=== PATIENT | male | born 1950 | race African-American/Black ===

== ENCOUNTER 2017-04-03 21:14 | Emergency (ER) | payer BC ==
[~2017-04-03] VITALS: Ht 177.8 cm; Wt 102.3 kg
[~2017-04-03 21:14] MED LIST: CLEAPOW6 PO; CLON.1 PO; DOCU100T9 PO; FURO20TA PO; GLUCTAB PO; HCTZ25 PO; HYDR2TAB PO; LISI20 PO; MORP60 PO; NIFE1TAB85 PO; OXYC1SOL5 PO; PRAV20 PO; SITA50 PO; SUCR1TAB PO
[2017-04-03 21:15] VITALS: BP 260/123; PULSE 64; RESP 16; TEMP 98.1; O2SAT 99
--- NOTE | 2017-04-03 22:29 | PD ---
HPI Chief Complaint: Skin Problem Time Seen by Provider: 21:44 Travel History International Travel<30 days: No Contact w/Intl Traveler<30days: No Traveled to known affect area: No History of Present Illness HPI 66-year-old black male presents to emergency department for evaluation of a rash. He feels that he may have contracted poison kathia or some sort of an internal infection. Patient states that approximately one week ago he had been helping move some wood at his 's house and noticed a rash on his ears 2 days later. He states that the rash on his ears has resolved. He is now having diffuse pruritus. Patient also states that he has had some swelling of his foreskin and cannot retract his foreskin. He denies any urethral symptoms. No discharge. He denies sexual activity. Patient denies any fever or chills. No chest pain or shortness of breath. No rashes at this time. PFSH Past Medical History Hx Anticoagulant Therapy: Yes (PE 3 MONTHS AGO) Arthritis: Yes (OSTEOARTHRITIS) Asthma: No Autoimmune Disease: No Anxiety: No Depression: No Heart Rhythm Problems: Yes (HEART MURMUR) Cancer: No Cardiovascular Problems: Yes (HIGH BP) High Cholesterol: Yes Chemotherapy: No Chest Pain: No Congestive Heart Failure: No COPD: No Cerebrovascular Accident: No Diabetes: Yes (DM TYPE 2) Patient Takes Glucophage: Yes (METFORMIN ) Diminished Hearing: No Endocrine: Yes GERD: Yes (GERD) Genitourinary: Yes (ENLARGED PROSTATE) Hiatal Hernia: No Hypertension: Yes Immune Disorder: No Implanted Vascular Access Dvce: Yes Kidney Stones: No Musculoskeletal: Yes Neurologic: Yes (BILATERAL KNEE ARTHRITIS) Psychiatric: No Reproductive: Yes (PROSTATE HYPERTROPHY) Respiratory: Yes Migraines: No Radiation Therapy: No Renal Failure: No Seizures: No Sickle Cell Disease: No Sleep Apnea: Yes (BUT NO CPAP) Thyroid Disease: No Ulcer: No Tetanus Vaccination: > 5 Years Past Surgical History Abdominal Surgery: No AICD: No Arteriovenous Shunt: No Cardiac Surgery: No Cholecystectomy: Yes Ear Surgery: No Endocrine Surgery: No Eye Surgery: No Genitourinary Surgery: Yes (ENLARGED PROSTATE-PARTIAL REMOVAL) Gynecologic Surgery: No Insulin Pump: No Joint Replacement: Yes (BILATERAL KNEE REPLACEMENT) Oral Surgery: No Pacemaker: No Thoracic Surgery: No Other Surgery: Yes (WENDY, PARTIAL PROSTATE REMOVED) Social History Alcohol Use: No Tobacco Use: No Substance Use: No Allergies-Medications (Allergen,Severity, Reaction): Coded Allergies: No Known Allergies (Verified Adverse Reaction, Unknown, 04/03/17) Reported Meds & Prescriptions Reported Meds & Active Scripts Active Bella Allergy (Fexofenadine HCl) 180 Mg Tab 180 Mg PO DAILY Triamcinolone Topical (Triamcinolone Acetonide) 0.1 % Oint 1 Applic TOPICAL BID 7 Days Catapres (Clonidine HCl) 0.1 Mg Tab 0.1 Mg PO BID Morphine Sulfate ER (Morphine Sulfate) 60 Mg Tab 60 Mg PO Q12HR Nifedipine Er (Nifedipine) 30 Mg Tab 30 Mg PO DAILY Oxycodone/Acetaminophen 5-325 mg/5Ml (Oxycodone W/ Acetaminophen) 10 mg/325 mg Tab 1-2 Tab PO Q4H PRN Januvia (Sitagliptin Phosphate) 50 Mg Tab 50 Mg PO DAILY Hydrodiuril (Hydrochlorothiazide) 25 Mg Tab 25 Mg PO DAILY Pravastatin Sodium 20 Mg Tab 20 Mg PO HS Prinivil 20 mg (Lisinopril) 20 Mg Tab 20 Mg PO BID Polyethylene Glycol 3350 (Polyethylene Glycol) 3,350 Nf Pow 17 Gm PO DAILY 30 Days DISSOLVE 1 PACKET (17 GM) IN 4-8 OUNCES OF WATER OR JUICE BEFORE CONSUMPTION Sucralfate 1 Gm Tab 1 Gm PO TIDAC Take with water on an empty stomach. To reduce the potential of adversely affecting the absorption of other drugs, take other drugs 2 hours prior to Sucralfate. Hydromorphone Hcl (Hydromorphone HCl) 2 Mg Tab 2 Mg PO Q4H PRN Furosemide 20 Mg Tab 20 Mg PO DAILY Docusate Sodium 100 Mg Cap 100 Mg PO BID Glucophage XR 24 HR (Metformin HCl) 500 Mg Tab 500 Mg PO BID Review of Systems General / Constitutional: No: Fever Eyes: No: Visual changes HENT: No: Headaches Cardiovascular: No: Chest Pain or Discomfort Respiratory: No: Shortness of Breath Gastrointestinal: No: Abdominal Pain Genitourinary: No: Urgency, Frequency, Dysuria, Hematuria, Discharge Musculoskeletal: No: Pain Skin: Positive Itching, Positive Dryness, No Rash Neurologic: No: Weakness Psychiatric: No: Depression Endocrine: No: Polydipsia Hematologic/Lymphatic: No: Easy Bruising Physical Exam Narrative GENERAL: Well-developed, well-nourished in no acute distress. Nontoxic appearing. HEAD: Normocephalic, atraumatic. EYES: Pupils equal round and reactive. Extraocular motions intact. No scleral icterus. No injection or drainage. ENT: TMs clear without erythema. The external auditory canals clear. Nose: clear . Posterior pharynx is pink and moist. No tonsillar edema or exudate. Uvula midline. Airway patent. NECK: Trachea midline.Supple, nontender, moves head freely. No central bony tenderness or spasm. CARDIOVASCULAR: Regular rate and rhythm without murmurs, gallops, or rubs. RESPIRATORY: Clear to auscultation. Breath sounds equal bilaterally. No wheezes , rales, or rhonchi. GASTROINTESTINAL: Abdomen soft, non-tender, nondistended. No hepato-splenomegaly , or palpable masses. No guarding. EXTREMITIES: No clubbing, cyanosis, or edema. No joint tenderness, effusion, or edema noted. BACK: Nontender without deformity or crepitance. No flank tenderness. GENITOURINARY: UNCircumcised. Patient does have some mild swelling of the foreskin. Testes descended bilaterally without evidence of rotation. No lesions or erythema. No urethral discharge. Data Data Last Documented VS Vital Signs Date Time Temp Pulse Resp B/P (MAP) Pulse Ox O2 Delivery O2 Flow Rate FiO2 04/03/17 21:15 98.1 64 16 260/123 (168) 99 Room Air Orders Orders Complete Blood Count With Diff (04/03/17 21:53) Comprehensive Metabolic Panel (04/03/17 21:53) Urinalysis - C+S If Indicated (04/03/17 21:53) Diphenhydramine (Benadryl) (04/04/17 00:00) Ed Discharge Order (04/03/17 23:47) Labs Laboratory Tests Test 04/03/17 22:15 White Blood Count 4.6 TH/MM3 Red Blood Count 4.36 MIL/MM3 Hemoglobin 12.4 GM/DL Hematocrit 38.0 % Mean Corpuscular Volume 87.2 FL Mean Corpuscular Hemoglobin 28.5 PG Mean Corpuscular Hemoglobin Concent 32.6 % Red Cell Distribution Width 14.8 % Platelet Count 253 TH/MM3 Mean Platelet Volume 8.3 FL Neutrophils (%) (Auto) 43.7 % Lymphocytes (%) (Auto) 34.7 % Monocytes (%) (Auto) 12.6 % Eosinophils (%) (Auto) 8.4 % Basophils (%) (Auto) 0.6 % Neutrophils # (Auto) 2.0 TH/MM3 Lymphocytes # (Auto) 1.6 TH/MM3 Monocytes # (Auto) 0.6 TH/MM3 Eosinophils # (Auto) 0.4 TH/MM3 Basophils # (Auto) 0.0 TH/MM3 CBC Comment DIFF FINAL Differential Comment Urine Color YELLOW Urine Turbidity CLEAR Urine pH 6.5 Urine Specific Williamson 1.021 Urine Protein TRACE mg/dL Urine Glucose (UA) NEG mg/dL Urine Ketones NEG mg/dL Urine Occult Blood NEG Urine Nitrite NEG Urine Bilirubin NEG Urine Urobilinogen LESS THAN 2.0 MG/DL Urine Leukocyte Esterase TRACE Urine RBC LESS THAN 1 /hpf Urine WBC 2 /hpf Urine Squamous Epithelial Cells <1 /hpf Urine Mucus FEW /lpf Microscopic Urinalysis Comment CULT NOT INDICATED Blood Urea Nitrogen 17 MG/DL Creatinine 1.28 MG/DL Random Glucose 141 MG/DL Total Protein 7.8 GM/DL Albumin 3.5 GM/DL Calcium Level 8.7 MG/DL Alkaline Phosphatase 64 U/L Aspartate Amino Transf (AST/SGOT) 15 U/L Alanine Aminotransferase (ALT/SGPT) 24 U/L Total Bilirubin 0.3 MG/DL Sodium Level 139 MEQ/L Potassium Level 3.4 MEQ/L Chloride Level 103 MEQ/L Carbon Dioxide Level 29.1 MEQ/L Anion Gap 7 MEQ/L Estimat Glomerular Filtration Rate 68 ML/MIN MDM Medical Decision Making Medical Screen Exam Complete: Yes Emergency Medical Condition: Yes Medical Record Reviewed: Yes Interpretation(s) Laboratory Tests Test 04/03/17 22:15 White Blood Count 4.6 TH/MM3 Red Blood Count 4.36 MIL/MM3 Hemoglobin 12.4 GM/DL Hematocrit 38.0 % Mean Corpuscular Volume 87.2 FL Mean Corpuscular Hemoglobin 28.5 PG Mean Corpuscular Hemoglobin Concent 32.6 % Red Cell Distribution Width 14.8 % Platelet Count 253 TH/MM3 Mean Platelet Volume 8.3 FL Neutrophils (%) (Auto) 43.7 % Lymphocytes (%) (Auto) 34.7 % Monocytes (%) (Auto) 12.6 % Eosinophils (%) (Auto) 8.4 % Basophils (%) (Auto) 0.6 % Neutrophils # (Auto) 2.0 TH/MM3 Lymphocytes # (Auto) 1.6 TH/MM3 Monocytes # (Auto) 0.6 TH/MM3 Eosinophils # (Auto) 0.4 TH/MM3 Basophils # (Auto) 0.0 TH/MM3 CBC Comment DIFF FINAL Differential Comment Urine Color YELLOW Urine Turbidity CLEAR Urine pH 6.5 Urine Specific Williamson 1.021 Urine Protein TRACE mg/dL Urine Glucose (UA) NEG mg/dL Urine Ketones NEG mg/dL Urine Occult Blood NEG Urine Nitrite NEG Urine Bilirubin NEG Urine Urobilinogen LESS THAN 2.0 MG/DL Urine Leukocyte Esterase TRACE Urine RBC LESS THAN 1 /hpf Urine WBC 2 /hpf Urine Squamous Epithelial Cells <1 /hpf Urine Mucus FEW /lpf Microscopic Urinalysis Comment CULT NOT INDICATED Blood Urea Nitrogen 17 MG/DL Creatinine 1.28 MG/DL Random Glucose 141 MG/DL Total Protein 7.8 GM/DL Albumin 3.5 GM/DL Calcium Level 8.7 MG/DL Alkaline Phosphatase 64 U/L Aspartate Amino Transf (AST/SGOT) 15 U/L Alanine Aminotransferase (ALT/SGPT) 24 U/L Total Bilirubin 0.3 MG/DL Sodium Level 139 MEQ/L Potassium Level 3.4 MEQ/L Chloride Level 103 MEQ/L Carbon Dioxide Level 29.1 MEQ/L Anion Gap 7 MEQ/L Estimat Glomerular Filtration Rate 68 ML/MIN Differential Diagnosis Differential diagnoses: Contact dermatitis, medication reaction, electrolyte abnormality Narrative Course Patient's laboratory tests are unremarkable. I do not see the etiology of the patient's complaint of pruritus. The patient will be given prescriptions for triamcinolone cream as well as Bella. He is recommended to follow-up with his doctor on Wednesday. Patient is given Benadryl 50 mg by mouth here discharge. Diagnosis Primary Impression: Pruritus Patient Instructions: General Instructions Additional Instructions: Rest. Dove soap. Aveeno bath. Triamcinolone cream. (Use sparingly) Bella. Follow-up with your doctor on Wednesday. Return to the ER for emergencies. Med/Other Pt SpecificInfo: Prescription(s) given Scripts Fexofenadine (Bella Allergy) 180 Mg Tab 180 MG PO DAILY for Allergy Management, #14 TAB 0 Refills Prov: Katherine Caceres DO 04/03/17 Triamcinolone Topical (Triamcinolone Topical) 0.1 % Oint 1 APPLIC TOPICAL BID for Inflammation for 7 Days, GM 0 Refills Prov: Katherine Caceres DO 04/03/17 Disposition: 01 DISCHARGE HOME Condition: Stable Jaime Abdul Apr 03, 2017 22:29
[2017-04-03 22:56] LABS: BASOPHIL % 0.6 % (0.0-2.0); EOSINOPHIL # 0.4 TH/MM3 (0-0.4); EOSINOPHIL % 8.4 % (0.0-4.0); HEMOGLOBIN 12.4 GM/DL (13.0-17.0); LYMPH % 34.7 % (9.0-44.0); LYMPHOCYTE # 1.6 TH/MM3 (1.0-4.8); MEAN CELL VOLUME 87.2 FL (80.0-100.0); MEAN CORPUSCULAR HEMOGLOBIN 28.5 PG (27.0-34.0); MEAN CORPUSCULAR HGB CONC 32.6 % (32.0-36.0); MEAN PLATELET VOLUME 8.3 FL (7.0-11.0); MONO % 12.6 % (0.0-8.0); MONOCYTE # 0.6 TH/MM3 (0-0.9); NEUT % 43.7 % (16.0-70.0); PLATELET COUNT 253 TH/MM3 (150-450); RED BLOOD COUNT 4.36 MIL/MM3 (4.50-5.90); RED CELL DISTRIBUTION WIDTH 14.8 % (11.6-17.2); WHITE BLOOD COUNT 4.6 TH/MM3 (4.0-11.0)
[2017-04-03 22:57] LABS: BILIRUBIN, URINE NEG (NEG); BLOOD, URINE NEG (NEG); GLUCOSE,URINE NEG (NEG); KETONE, URINE NEG (NEG); MUCUS URINE FEW /lpf (OCC); NITRITE,URINE NEG (NEG); PH, URINE 6.5 (5.0-8.5); SQUAMOUS EPITHELIAL CELL URINE <1 /hpf (0-5); URINE COLOR YELLOW (YELLW/STRAW); URINE LEUKOCYTE ESTERASE TRACE (NEG)
[2017-04-03 23:07] LABS: ALBUMIN 3.5 GM/DL (3.4-5.0); ALT (GPT) 24 U/L (12-78); AST (GOT) 15 U/L (15-37); BICARBONATE 29.1 MEQ/L (21.0-32.0); BLOOD UREA NITROGEN 17 MG/DL (7-18); CALCIUM 8.7 MG/DL (8.5-10.1); CHLORIDE 103 MEQ/L (98-107); CREATININE 1.28 MG/DL (0.60-1.30); GLOMERULAR FILTRATION RATE 68 ML/MIN (>89); GLUCOSE,RANDOM 141 MG/DL (74-106); SODIUM (NA) 139 MEQ/L (136-145)
[2017-04-03 23:10] LABS: ALKALINE PHOSPHATASE 64 U/L (45-117); TOTAL BILIRUBIN ADULT 0.3 MG/DL (0.2-1.0); TOTAL PROTEIN 7.8 GM/DL (6.4-8.2)
[2017-04-03] MEDS ORDERED: TRIAM.1%T TOPICAL (23:47)
[2017-04-03] MEDS ORDERED: FEXO15TA PO (23:47)
[2017-04-04] MEDS ORDERED: diphenhydrAMINE HCL 50 MG CAP PO ONE
== END 2017-04-04 00:14 | disposition home or self-care (01) ==
LOC: NEPD 21:14
DX: L29.9 Pruritus, unspecified (principal); E11.9 Type 2 diabetes mellitus without complications; E78.00 Pure hypercholesterolemia, unspecified; Z79.84 Long term (current) use of oral hypoglycemic drugs
CPT/HCPCS: 80053; 81001; 85025; 99283; Q0163